=== PATIENT | female | born 1980 | race Caucasian/White ===

== ENCOUNTER 2016-06-29 10:43 | Observation (INO) | payer MEDICAID ==
[2016-06-29 10:54] VITALS: RESP 18; TEMP 98.1; O2SAT 99
[2016-06-29] MEDS ORDERED: Sodium Chloride 0.9% 1,000 ML IV ONE (11:26)
[2016-06-29 11:53] LABS: VENOUS BLOOD GAS BASE EXCESS -8.4 mmol/L (0.0-2.0); VENOUS BLOOD GAS PCO2 35 mmHg (40-60)
--- NOTE | 2016-06-29 11:56 | C.PDOC ---
History Of Present Illness 35 year old female, P:1 and currently 17 weeks , presents to the ED with complaints of lower pelvic pressure for the past few days. Patient states she felt lightheaded while at work today and notes she has had increased thirst and urination. She was recently diagnosed with gestational DM but is not on any medications for it. Patient has not had any complications with her previous . She denies previous history of DM, fever/chills, diarrhea, dysuria/ hematuria, vaginal bleeding. Time Seen by Provider: 06/29/16 10:54 Chief Complaint (Nursing): Dizziness/Lightheaded History Per: Patient History/Exam Limitations: no limitations Onset/Duration Of Symptoms: Days Current Symptoms Are (Timing): Still Present Associated Symptoms Preceding Syncopal Episode: Lightheadedness Seizure Or Post-ictal Symptoms: None Fall Associated With With Symptoms: No Severity: Mild Past Medical History Reviewed: Historical Data, Nursing Documentation, Vital Signs Vital Signs: Last Vital Signs Temp 98.1 F 06/29/16 14:15 Pulse 81 06/29/16 14:15 Resp 18 06/29/16 14:15 BP 113/76 06/29/16 14:15 Pulse Ox 99 06/29/16 14:32 - Medical History PMH: Mitral Valve Prolapse Family History: States: No Known Family Hx - Social History Hx Alcohol Use: No Hx Substance Use: No - Immunization History Hx Tetanus Toxoid Vaccination: No Hx Influenza Vaccination: No Hx Pneumococcal Vaccination: No Review Of Systems Except As Marked, All Systems Reviewed And Found Negative. Constitutional: Positive for: Other (+Increased thirst) Cardiovascular: Positive for: Light Headedness. Negative for: Chest Pain, Palpitations Gastrointestinal: Negative for: Nausea, Vomiting, Abdominal Pain, Diarrhea Genitourinary: Positive for: Frequency, Pelvic Pain (+Pelvic pressure) Physical Exam - Physical Exam Appears: Well, Non-toxic, No Acute Distress Skin: Normal Color, Warm, Dry Head: Normacephalic Eye(s): bilateral: Normal Inspection Oral Mucosa: Moist Chest: Symmetrical, No Deformity Cardiovascular: Rhythm Regular Respiratory: Normal Breath Sounds, No Accessory Muscle Use, No Rales, No Rhonchi , No Wheezing Gastrointestinal/Abdominal: Bowel Sounds, Soft, No Tenderness, No Guarding, No Rebound, Other (+Gravid) Extremity: Normal ROM, No Pedal Edema Extremity: Bilateral: Atraumatic, Normal Color And Temperature, Normal ROM Neurological/Psych: Oriented x3 ED Course And Treatment - Laboratory Results Result Diagrams: 06/29/16 11:45 06/29/16 11:45 O2 Sat by Pulse Oximetry: 99 (Room air) Pulse Ox Interpretation: Normal - CT Scan/US OBS US Other Rad Studies (CT/US): Read By Radiologist, Radiology Report Reviewed CT/US Interpretation: Accession No. : [id number]. Patient Name / ID : VERONICA ARNOLD / [id number]. Exam Date : 06/29/2016 13:21:10 ( Approved ). Study Comment : Sex / Age : F / 35Y. Creator : John Ortega MD. Dictator : John Ortega MD. Television Production Technician : Tobacco Blender : John Ortega MD. Approver2 : Report Date : 06/29/2016 14:15:17. My Comment : . PROCEDURE: OB ultrasound 06/28/2016. HISTORY: Pelvic pain. . COMPARISON: No prior. TECHNIQUE: Transabdominal sonographic evaluation of the gravid uterus performed. FINDINGS: Current study reveals a single living intrauterine gestation. The placenta is anteriorly located free of the cervical os. Cervical os measures approximately 4.93 cm and appears closed. Fetus is variable in presentation. BPD = 4.25 cm = 18 weeks 6 days. HC = 15 cm = 18 weeks 1 days. AC = 12.98 cm = 18 weeks 4 day. FL = 2.64 cm = 18 weeks 0 day. Average ultrasound age 18 weeks 3 day +/- 1w 2d. Heart rate detected at 157 BPM. Dedicated anatomy survey not performed on this study. No free fluid seen in the cul de sac. Neither adnexa visualized. IMPRESSION: Single living intrauterine gestation at approximately 18 weeks 3 day +/- 1 w 2d as above. Dedicated anatomy survey not performed on this study Progress Note: Blood work, Urinalysis, heart tones, and Accucheck ordered and reviewed. Patient given IV NS bolus. Nurse unable to auscultate heart tones, US ordered to evaluate . Reevaluation Time: 14:30 Reassessment Condition: Improved (Patient reassessed, is resting comfortably, in no current pain/distress. On exam, abdomen is soft and nontender. Patient' s Us is WNL, and blood work, UA also unremarkable. Patient is well appearing and comfortable being discharged home. She was instructed to follow up with ob/ tank builder helper within 1 week, and understands she should return to ED if symptoms worsen.) Disposition Counseled Patient/Family Regarding: Studies Performed, Diagnosis, Need For Followup - Disposition Disposition: HOME/ ROUTINE Disposition Time: 14:30 Condition: STABLE - POA Present On Arrival: None - Clinical Impression Clinical Impression: , Pelvic pain - Scribe Statement The provider has reviewed the documentation as recorded by the Scribe Miguel Gonzalez. Provider Attestation: All medical record entries made by the Scribe were at my direction and personally dictated by me. I have reviewed the chart and agree that the record accurately reflects my personal performance of the history, physical exam, medical decision making, and the department course for this patient. I have also personally directed, reviewed, and agree with the discharge instructions and disposition.
[2016-06-29] MEDS ORDERED: Sodium Chloride 0.9% 1,000 ML ONE (11:58)
[2016-06-29 12:01] LABS: BASO % 0.4 % (0.0-2.0); EOS # 0.1 K/uL (0.0-0.7); EOS % 0.5 % (0.0-4.0); HEMATOCRIT 35.8 % (34.0-47.0); LYMPH # 1.6 K/uL (1.0-4.3); MEAN CELL VOLUME 89.6 fL (81.0-99.0); MEAN CORPUSCULAR HEMOGLOBIN 29.8 pg (27.0-31.0); MEAN CORPUSCULAR HGB CONC 33.2 g/dL (33.0-37.0); MEAN PLATELET VOLUME 8.3 fL (7.2-11.7); MONO # 0.8 K/uL (0.0-0.8); MONO % 6.9 % (0.0-10.0); RED CELL DISTRIBUTION WIDTH 13.3 % (11.5-14.5); WHITE BLOOD COUNT 11.3 K/uL (4.8-10.8)
[2016-06-29 12:02] LABS: CHLORIDE 102 mmol/L (98-107); POTASSIUM 3.6 mmol/L (3.6-5.2); SODIUM 136 mmol/L (132-148)
[2016-06-29 12:03] LABS: RBC URINE 1 /hpf (0-3); URINE BACTERIA RARE (<OCC); URINE BILIRUBIN NEGATIVE (NEGATIVE); URINE BLOOD NEGATIVE (NEGATIVE); URINE COLOR Yellow (YELLOW); URINE GLUCOSE (UA) NORMAL (Normal); URINE KETONE NEGATIVE (NEGATIVE); URINE LEUKOCYTE ESTERASE NEG Leu/uL (Negative); URINE PROTEIN NEGATIVE (NEGATIVE); URINE UROBILINOGEN NORMAL mg/dL (0.2-1.0); WBC URINE < 1 /hpf (0-5)
[2016-06-29 12:04] LABS: GFR AFRICAN-AMERICAN > 60
[2016-06-29 12:05] LABS: ALB/GLOB RATIO 1.2 (1.0-2.1); ALKALINE PHOSPHATASE 58 U/L (38-126); ALT/SGPT 29 U/L (9-52); AST/SGOT 29 U/L (14-36); BILIRUBIN,TOTAL 0.3 mg/dL (0.2-1.3); BLOOD UREA NITROGEN 11 mg/dL (7-17); CARBON DIOXIDE 24 mmol/L (22-30); GLUCOSE,RANDOM 65 mg/dL (65-105); TOTAL PROTEIN 6.5 g/dL (6.3-8.3)
[2016-06-29 12:06] LABS: CALCIUM 8.9 mg/dl (8.6-10.4)
[2016-06-29 13:55] VITALS: BP 113/76; PULSE 81
--- NOTE | 2016-06-29 14:16 | US ---
PROCEDURE: OB ultrasound 06/28/2016 HISTORY: Pelvic pain. . COMPARISON: No prior TECHNIQUE: Transabdominal sonographic evaluation of the gravid uterus performed FINDINGS: Current study reveals a single living intrauterine gestation. The placenta is anteriorly located free of the cervical os. Cervical os measures approximately 4.93 cm and appears closed. Fetus is variable in presentation. BPD = 4.25 cm = 18 weeks 6 days HC = 15 cm = 18 weeks 1 days AC = 12.98 cm = 18 weeks 4 day FL = 2.64 cm = 18 weeks 0 day Average ultrasound age 18 weeks 3 day +/- 1w 2d Heart rate detected at 157 BPM. Dedicated anatomy survey not performed on this study. No free fluid seen in the cul de sac. Neither adnexa visualized IMPRESSION: Single living intrauterine gestation at approximately 18 weeks 3 day +/- 1 w 2d as above. Dedicated anatomy survey not performed on this study
== END 2016-06-29 14:31 | disposition home or self-care (01) ==
LOC: C.ER 10:43 → C.9OBSV 12:54
PROVIDERS: ADMIT Emergency Medicine; ATTEND Emergency Medicine
DX: O26.892 Other specified pregnancy related conditions, second trimester (principal); R10.2 Pelvic and perineal pain; R42 Dizziness and giddiness; Z3A.17 17 weeks gestation of pregnancy
CPT/HCPCS: 76815; 80053; 81001; 82009; 82803; 82948; 84702; 85025; 86850; 86900; 87086; 99285; G0378; J7040

== ENCOUNTER 2016-09-04 21:57 | Emergency (ER) | payer OTHER ==
[2016-09-04 22:02] VITALS: BMI 28.7
[2016-09-04] MEDS ORDERED: Lactated Ringer's 1,000 ML IV ONE (22:03)
[2016-09-04 22:36] LABS: BASO # 0.1 K/uL (0.0-0.2); BASO % 0.4 % (0.0-2.0); EOS # 0.1 K/uL (0.0-0.7); EOS % 1.1 % (0.0-4.0); LYMPH % 15.1 % (20.0-40.0); MEAN CELL VOLUME 87.8 fL (81.0-99.0); MEAN CORPUSCULAR HEMOGLOBIN 28.6 pg (27.0-31.0); MEAN CORPUSCULAR HGB CONC 32.6 g/dL (33.0-37.0); MEAN PLATELET VOLUME 8.3 fL (7.2-11.7); MONO # 1.1 K/uL (0.0-0.8); NEUT # 9.9 K/uL (1.8-7.0); NEUT % 75.4 % (50.0-75.0); RBC 3.86 Mil/uL (3.80-5.20); RED CELL DISTRIBUTION WIDTH 12.8 % (11.5-14.5); WHITE BLOOD COUNT 13.2 K/uL (4.8-10.8)
[2016-09-04 22:43] LABS: ALBUMIN 3.1 g/dL (3.5-5.0)
[2016-09-04 22:44] LABS: SQUAMOUS EPITHIAL 2 /hpf (0-5); URINE BACTERIA RARE (<OCC); URINE BILIRUBIN NEGATIVE (NEGATIVE); URINE BLOOD NEGATIVE (NEGATIVE); URINE CLARITY Clear (Clear); URINE COLOR Straw (YELLOW); URINE GLUCOSE (UA) NORMAL (Normal); URINE NITRATE NEGATIVE (NEGATIVE); URINE PROTEIN NEGATIVE (NEGATIVE); URINE UROBILINOGEN NORMAL mg/dL (0.2-1.0)
[2016-09-04 22:46] LABS: AST/SGOT 35 U/L (14-36); GFR AFRICAN-AMERICAN > 60; GFR NON-AFRICAN AMERICAN > 60
[2016-09-04 22:47] LABS: ALT/SGPT 18 U/L (9-52); BENZODIAZEPINES, UR NEGATIVE (NEGATIVE); BLOOD UREA NITROGEN 8 mg/dL (7-17); CALCIUM 8.7 mg/dl (8.6-10.4)
[2016-09-04 22:49] LABS: BARBITURATES, UR NEGATIVE (NEGATIVE)
[2016-09-04 22:51] LABS: OPIATES, UR NEGATIVE (NEGATIVE)
[2016-09-04 22:52] LABS: PHENCYCLIDINE, UR NEGATIVE (NEGATIVE)
[2016-09-04 23:06] LABS: URINE LEUKOCYTE ESTERASE NEGATIVE Leu/uL (Negative)
--- NOTE | 2016-09-04 23:32 | OBHP ---
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 Onset since approx 5 months of ; worsened over past 3 days. Denies fever, chills; no recent travel. No sick contact. (+) FM; denies LOF, VB, Ctx. care: [facility]; last visit 08/27/16 - glucosuria noted. ! hr GCT performed 09/01/16; results at F/U scheduled 09/17/16. Al es any other prenatl issues P Ob: 01/13/09, C/S at 37 weeks, female, 8lb; due to feeling tired. No trial of labor. No GDM or HT N disorders. No complications. 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 Had ECHO in [facility] end 02/2016 - also no evidence of MVP. 2) unclear thyroid disorder: patient state s "many years ago" church business administrator referred her for endocrine evaluation. Was told to have a thyroid dis order - never on medications. Has not seen endo since. 3) denies psychiatric disorders - depression, anxiety, etc. PSH: C/S NKDA Meds: PNV - QD Soc Hx: denies tobacco, illcit drug or EtOH use. x 7 years. Lives with lisa and bon ro[place] Fam Hx: Mother alive 60 y.o. - dyslipidemia, heart disease. Father 3 months ago, almost 8 0 y.o. - heart complications, h/o HTN. No known fam h/o cancer P.E.: as above. WD in NAD; sad versus flat affect, crying when answering questions about her fathe r Assessment: 36 y.o. P1, 27w 3d, prev C/S. Above symptoms suggest possible endocrinopathy, possibly related to thyroid. Would recommend in depth endocrine evaluation. VS are stable. O2 saturation wnl on room air. FHR wnl for gestational age. Clinically stable. Plan: 1) IVFs 2) CBC, comp panel, U/A, drug screen 3) observe Addendum: 2322 hours: S/P IVFs - feels better. labs reviewed: U/A and UDS negative. Hgb 11.0. Chem noted for serum gluco se 131 mg/dL. Patient concerned about the blood test results, in particular, glucose. It was explain ed to patient, mildly elevated. Assessment: P1, AMA, 27w 3d, prev C/S; R/O GDM. Patient counseled to contact clinic in the [facility] and attempt to reschedule follow up appointment for 09/10/16, and to request evaluation with c ardiologist and endocrinlogist. Patient expressed an understanding and agrees. Patient is clinically stable. Plan: 1) Discharge home 2) Note given for work: out of work until 09/08/16 Pelvic Type - PN: Not Done Extremities - PN: Normal Abdomen - PN: Normal Back - PN: Normal Breast - PN: Not Done Lungs - PN: Normal Heart - PN: Normal Thyroid - PN: Normal Neurologic - PN: Normal HEENT - PN: Normal General - PN: Normal FHR - Baseline A Provider: 145 Contraction Comments Provider: occasional Comments, ACOG Physical Exam: Skin: warm, dry. Eyebrows are filled in; symmetric Thyroid: no enlargement Abdomen: gravid. Soft. Fundal height 27 cm. Healed Pfannenstiel scar All other systems reviewed- as per HPI Gestation - Est Wks by US: 27w 3d EGA AdmitDate IP: 27.3 Vital Signs Provider: Reviewed IP Chief Complaint: Maternal discomfort NICHD Decel Fetus A IP Provider: None Dilatation, Provider: deferred Genitourinary Exam: Not Done DTRs - PN: Not Done
== END 2016-09-04 23:11 | disposition home or self-care (01) ==
LOC: C.EROB 21:57
DX: O26.892 Other specified pregnancy related conditions, second trimester (principal); R53.1 Weakness; Z3A.27 27 weeks gestation of pregnancy
CPT/HCPCS: 80053; 80324; 80345; 80346; 80349; 80353; 80358; 80361; 81001; 83992; 85025; 99283; J7120

== ENCOUNTER 2016-09-22 09:56 | Emergency (ER) | payer OTHER ==
[2016-09-22 10:06] VITALS: BMI 29.9
--- NOTE | 2016-09-22 12:18 | US ---
OB limited/ biophysical profile Indication: post fall and decrease fm Technique: Grayscale, color flow, and M-mode sonographic images of the single live intrauterine were obtained. Comparison: Limited OB ultrasound performed 06/29/16 Findings: There is a single live intrauterine gestation. The fetus is in breech position. The placenta is anterior. There is no evidence of previa. There is a normal amount of amniotic fluid. The NAE measures 12.48 cm . M-mode imaging demonstrates a heart rate to be 140.7 beats per min. Cervix length measures approximately 3.2 cm. Fetus has a composite sonographic age of 29 weeks 5 days. This calculation is based on the biparietal diameter, head circumference, abdominal circumference, and femur length. movements 2/2 breathing 2/2 tone 2/2 Amniotic fluid 2/2 Total score impression: 8/8 Impression: Biophysical profile of 8 out of 8. Single live intrauterine in breech position with a heart rate of 140.7 beats per min. Estimated gestational age 29 weeks 5 days. This study was performed for emergent evaluation, and the whole anatomic survey of the fetus was not performed. This should be performed on an outpatient elective basis as clinically warranted.
--- NOTE | 2016-09-25 12:16 | OBHP ---
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 Hit her perine um; no direct abdominal trauma. Reports no movement since. Ate breakfast at 0800 hours: "he usu ally moves a lot after I eat breakfast" - reports no movement. Denies any trauma to head or oth er body part. Denies LOF, VB, Ctx. care: [facility]; last visist approx 2 weeks ago. At that vis it, diagnosed GDM - given F.S. log sheet. Implemented dietary changes as of 09/19/16: reports fasting approx 80-90; 2 hour post prandials 101-108 since these changes. No other issues. P Ob: 01/13/09, C/S at 37 weeks, female, 8lb; due to feeling tired. No trial of labor. No GDM or HT N disorders. No complications. 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 Was having annual ECHOs; last one in [facility] 02/24/16 - no MVP. Had ECHO in [facility] end 02/2016 - also no evidence of MVP. 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 Was told to have a thyroid di sorder - never on medications. Has not seen endo since. 3) denies psychiatric disorders - depression , anxiety, etc. PSH: C/S NKDA Meds: PNV - QD Soc Hx: denies tobacco, illcit drug or EtOH use. x 7 years. Lives with and bon ro[place] Fam Hx: Mother alive 60 y.o. - dyslipidemia, heart disease. Father 4 months ago, almost 8 0 y.o. - heart complications, h/o HTN. No known fam h/o cancer P.E.: as above. Mildy obese, in NAD. Awake, alert, oriented to time, person and place. Pleasant an d cooperative Assessment: 36 yo P1, 30 weeks; S/P fall; no abdominal trauma - reports no movement. Categor y 1 tracing/NST reactive. Newly diagnosed GDM - apparent good control to date. D/W patient will obtai n F.S. (ate breakfst at 0800 hours); and BPP. Patient expressed an understanding and agrees. Clinical ly stable. Plan: 1) F.S. (2hr post prandial) at 1000 hours 2) OB ultrasound/BPP 3) Observe Addendum: 1305 hours - F.S. at 1000 hours 92 mg/dL - BPS: 10/14 - Limited Ob ultraosund: AGA 29w 5d, breech presentation, NAE 12.4 cm; anterior placenta. Patient ate lunch; reported feeling more normal movement Plan: 1) Note given: off from work until visit, Thu09/24/16 2) reviewed S/S PTL 3) Continue F.S. and dietary changes 4) keep all scheduled appointments 5) discharge home Pelvic Type - PN: Adequate Extremities - PN: Normal Abdomen - PN: Normal Back - PN: Normal Breast - PN: Not Done Lungs - PN: Normal Heart - PN: Normal Thyroid - PN: Not Done Neurologic - PN: Normal HEENT - PN: Normal General - PN: Normal FHR - Baseline A Provider: 145 Contraction Comments Provider: none Comments, ACOG Physical Exam: Skin: warm, dry Abdomen: gravid. Soft. non tender in all quadrants. No bruises All other systems reviewed and are negative Gestation - Est Wks by US: 30.0 EGA AdmitDate IP: 30.0 Vital Signs Provider: Reviewed IP Chief Complaint: Other NICHD Variability Prov Fetus A: Moderate 6-25bpm NICHD Accel Fetus A IP Provider: [id number] FHR Category Provider Fetus A: Category I NICHD Decel Fetus A IP Provider: None Dilatation, Provider: deferred Genitourinary Exam: Normal DTRs - PN: Not Done
== END 2016-09-22 13:01 | disposition home or self-care (01) ==
LOC: C.EROB 09:56
DX: O36.8130 Decreased fetal movements, third trimester, not applicable or unspecified (principal); O24.419 Gestational diabetes mellitus in pregnancy, unspecified control; Z3A.30 30 weeks gestation of pregnancy

== ENCOUNTER 2016-10-21 10:38 | Emergency (ER) | payer OTHER ==
[2016-10-21 10:38] VITALS: BMI 29.9
[2016-10-21 11:12] VITALS: PULSE 90
--- NOTE | 2016-10-21 13:18 | C.PDOC ---
History Of Present Illness 36 y/o female and currently 34 weeks presents to ED with complaints of chest discomfort earlier today. Patient states she was at work and 45 minutes after eating started feeling discomfort on chest. Patient reports she was told by OBGYN Dr. 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 Patient admits to checking sugar regularly as instructed and denies fever, cough, vomiting, nausea or any other complaints at this time. Patient states her symptoms today lasted about 2 hours and she does not have any symptoms currently. She thinks it is likely due to glucose being high. She has been checking her glucose and it has been about 80s to max of 130 and OBGYN has not started her on insulin. Time Seen by Provider: 10/21/16 12:52 Chief Complaint (Nursing): Chest Pain History Per: Patient History/Exam Limitations: no limitations Onset/Duration Of Symptoms: Days Current Symptoms Are (Timing): Still Present Past Medical History Reviewed: Historical Data, Nursing Documentation, Vital Signs Vital Signs: Last Vital Signs Temp 98.2 F 10/21/16 10:46 Pulse 90 10/21/16 11:06 Resp 20 10/21/16 10:46 BP 118/85 10/21/16 10:46 Pulse Ox 95 10/21/16 13:41 - Medical History PMH: Mitral Valve Prolapse Family History: States: Unknown Family Hx - Social History Hx Alcohol Use: No Hx Substance Use: No - Immunization History Hx Tetanus Toxoid Vaccination: No Hx Influenza Vaccination: No Hx Pneumococcal Vaccination: No Review Of Systems Except As Marked, All Systems Reviewed And Found Negative. Constitutional: Negative for: Fever Cardiovascular: Positive for: Chest Pain Gastrointestinal: Negative for: Nausea, Vomiting Physical Exam - Physical Exam Additional Physical Exam Comments: Constitutional: No acute distress. Head: Normocephalic. Atraumatic. Eyes: PERRL. ENT: Moist mucous membranes. Neck: Supple. Cardiovascular: Regular rate. Radial pulse 2+ bilaterally. Chest: No tenderness. Respiratory: Clear to auscultation bilaterally. GI: Soft. Nontender. Nondistended. Gravid Uterus Back: No CVA tenderness. Musculoskeletal: No tenderness or swelling of extremities. Skin: No rash. Neurologic: Alert, no focal deficit. ED Course And Treatment ECG: Interpreted By Me, Viewed By Me ECG Rhythm: Sinus Rhythm ECG Interpretation: Normal Interpretation Of ECG: No ST/T changes, Normal access Rate From EC (bpm) O2 Sat by Pulse Oximetry: 95 (ra) Medical Decision Making Medical Decision Making: Plan: * UA UA negative for protein, not positive for UTI, culture sent. Patient with follow up with OBGYN tomorrow. Will discharge home, return for worsening pain, dyspnea, vomiting. Disposition - Disposition Disposition: HOME/ ROUTINE Disposition Time: 13:32 Condition: STABLE Instructions: Gestational Diabetes (ED) Forms: [employer] ([place]) - Clinical Impression Clinical Impression: Chest discomfort - PA / PATIENT SERVICES TECHNICIAN / Resident Statement MD/DO has examined the patient and agrees with the treatment plan. - Scribe Statement The provider has reviewed the documentation as recorded by the Adrienibleighton Candelario All medical record entries made by the Adrienibleighton were at my direction and personally dictated by me. I have reviewed the chart and agree that the record accurately reflects my personal performance of the history, physical exam, medical decision making, and the department course for this patient. I have also personally directed, reviewed, and agree with the discharge instructions and disposition.
[2016-10-21 13:30] LABS: RBC URINE 1 /hpf (0-3); URINE BACTERIA RARE (<OCC); URINE BILIRUBIN NEGATIVE (NEGATIVE); URINE BLOOD NEGATIVE (NEGATIVE); URINE COLOR Yellow (YELLOW); URINE GLUCOSE (UA) 2+ mg/dL (Normal); URINE KETONE NEGATIVE (NEGATIVE); URINE LEUKOCYTE ESTERASE 2+ Leu/uL (Negative); URINE PROTEIN NEGATIVE (NEGATIVE); URINE UROBILINOGEN NORMAL mg/dL (0.2-1.0); WBC URINE 2 /hpf (0-5)
[2016-10-21 13:56] VITALS: BP 99/59; RESP 18; TEMP 98.5; O2SAT 99
--- NOTE | 2016-10-25 18:24 | CARD ---
APPROVED REPORT EKG Measurement Heart [id number] <Conclusion> Normal sinus rhythm Normal ECG
== END 2016-10-21 13:55 | disposition home or self-care (01) ==
LOC: C.ER 10:38
DX: R07.89 Other chest pain (principal)

== ENCOUNTER 2016-11-27 08:24 | Inpatient (IN) | payer OTHER ==
[2016-11-27] MEDS ORDERED: cefOXitin IV 2 gm in Dextrose 2 GM/50 ML BAG IVPB ONE (08:50)
[2016-11-27] MEDS ORDERED: Lactated Ringer's 1,000 ML IV SCH (09:00)
[2016-11-27] MEDS ORDERED: Sodium Citrate/Citric Acid 15 ml Sol PO ONE (09:18)
[2016-11-27 09:26] LABS: BASO % 0.5 % (0.0-2.0); EOS % 0.4 % (0.0-4.0); HEMATOCRIT 33.9 % (34.0-47.0); LYMPH # 1.4 K/uL (1.0-4.3); LYMPH % 15.2 % (20.0-40.0); MEAN CORPUSCULAR HEMOGLOBIN 24.4 pg (27.0-31.0); MEAN CORPUSCULAR HGB CONC 32.3 g/dL (33.0-37.0); MEAN PLATELET VOLUME 8.5 fL (7.2-11.7); MONO # 0.7 K/uL (0.0-0.8); MONO % 7.3 % (0.0-10.0); NRBC % 0.2 % (0.0-2.0); RED CELL DISTRIBUTION WIDTH 16.5 % (11.5-14.5); WHITE BLOOD COUNT 9.5 K/uL (4.8-10.8)
[2016-11-27 09:30] LABS: CHLORIDE 107 mmol/L (98-107); SODIUM 133 mmol/L (132-148)
[2016-11-27 09:31] LABS: MEAN CELL VOLUME 75.5 fL (81.0-99.0)
[2016-11-27 09:32] LABS: ALB/GLOB RATIO 1.1 (1.0-2.1); ALKALINE PHOSPHATASE 176 U/L (38-126); ALT/SGPT 39 U/L (9-52); AST/SGOT 30 U/L (14-36); BILIRUBIN,TOTAL 0.9 mg/dL (0.2-1.3); BLOOD UREA NITROGEN 10 mg/dL (7-17); CARBON DIOXIDE 16 mmol/L (22-30); GFR AFRICAN-AMERICAN > 60; TOTAL PROTEIN 6.2 g/dL (6.3-8.3)
[2016-11-27 09:33] LABS: GLUCOSE,RANDOM 75 mg/dL (65-105)
[2016-11-27 09:34] LABS: CALCIUM 8.9 mg/dl (8.6-10.4)
[2016-11-27] MEDS ORDERED: Penicillin G Potassium 5 MU in Dextrose 5% In Water 50 ML IV ONE (09:44)
[2016-11-27] MEDS ORDERED: Penicillin G 5 Million Unit Vial IVPB ONE (09:46)
[2016-11-27] MEDS ORDERED: OXYTOCIN IV ONE (10:27)
[2016-11-27] MEDS ORDERED: CEFOXITIN IVPB ONE (10:27)
[2016-11-27] MEDS ORDERED: DEXTROSE IVPB ONE (10:27)
[2016-11-27] MEDS ORDERED: Sodium Citrate/Citric Acid 15 ml Sol ONE (10:27)
[2016-11-27] MEDS ORDERED: LR IV ONE (10:27)
--- NOTE | 2016-11-27 11:30 | OBHP ---
Datetime: 11/27/2016 09:01 IP Adm Impression: Term, intrauterine IP Admit Plan: Admit to unit; Initiate Section protocol Admit Comment, IP Provider: Chief complaint-leaking of fluid HPI Patient is a 36 yo at 38weeks 3 days by LMP (03/03/17) presents to L and D for suspect ed rupture of membranes. Patient states that she felt a gush of fluid at 7:30 this morning. Fluid was clear. Offers no other complaints at this time. Endorses +FM, denies CTX, VB. Issues: AMA - low risk informaseq GDMA1 - Early 1 hr GTT 160, 1 hr GTT 211 OB Hx: 1. 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 Stable, Afebrile 2. Admit for repeat C/S, desires permanent sterilization (BTL consent signed) 3. Admission labs - CBC, CMP, T/S, UA, RPR 4. LR at 125cc/hr 5. Hx of MVP - Last echo 12/2015 normal, EKG ordered 6. CEFM and TOCO 7. Pre op - Mefoxitin 2g, bicitra, pepcid, insert magaña, abdominal prep 8. Diet - NPO 9. GBS positive, ruptured - Pen G 5 MU to be given 10. Patient ready for OR, awaiting surgical scrub technologist 11. Plan d/w attending Elizabeth Buenrostro DO PGY-1 OB attending Patient examined with resident.Agree with resident exam, assessment and plan 36 y/o female with prom.previous csection.GDMA1 -admit -see orders Pelvic Type - PN: Adequate Extremities - PN: Normal Abdomen - PN: Normal Back - PN: Normal Lungs - PN: Normal Heart - PN: Normal Neurologic - PN: Normal General - PN: Normal Presentation-Admit: Vertex FHR - Baseline A Provider: 140 Contraction Comments Provider: irregular Comments, ACOG Physical Exam: VS: BP 113/84 HR 91 Gen: AAOx3 CV: RRR Lungs: CTA B/L Abd: Soft, gravid, no fundal tenderness Ext: No clubbing, cyanosis, edema SSE: +Pooling, +nitrazine EFM: 140, mod variability, +accels, - decels TOCO: q 4- 7 min PNL: O+ Rubella immune HepBSag NR HIV NR RPR NR GC/CT negative HgA1C 6.1 Early 1 hr 160; 1 hr GTT 211 3hr GTT 76/140/112/102 Quant gold negative Last pap normal Last US 11/12: single IUP, anterior placenta, cephalic presentation, NAE WNL Gestation - Est Wks by US: 38.3 Pool Provider: Positive Nitrazine Provider: Positive Ferning Provider: Positive EGA AdmitDate IP: 38.3 Vital Signs Provider: Reviewed IP Chief Complaint: Suspected ruptured membranes NICHD Variability Prov Fetus A: Moderate 6-25bpm NICHD Accel Fetus A IP Provider: 15X15 FHR Category Provider Fetus A: Category I Dilatation, Provider: 2 Effacement, Provider: 50 Station, Provider: -2 DTRs - PN: Normal
--- NOTE | 2016-11-27 11:33 | OBADHP ---
Datetime: 11/27/2016 09:01 Admit Comment, IP Provider: Chief complaint-leaking of fluid HPI Patient is a 36 yo at 38weeks 3 days by LMP (03/03/17) presents to L and D for suspect ed rupture of membranes. Patient states that she felt a gush of fluid at 7:30 this morning. Fluid was clear. Offers no other complaints at this time. Endorses +FM, denies CTX, VB. Issues: AMA - low risk informaseq GDMA1 - Early 1 hr GTT 160, 1 hr GTT 211 OB Hx: 1. 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 Stable, Afebrile 2. Admit for repeat C/S, desires permanent sterilization (BTL consent signed) 3. Admission labs - CBC, CMP, T/S, UA, RPR 4. LR at 125cc/hr 5. Hx of MVP - Last echo 12/2015 normal, EKG ordered 6. CEFM and TOCO 7. Pre op - Mefoxitin 2g, bicitra, pepcid, insert magaña, abdominal prep 8. Diet - NPO 9. GBS positive, ruptured - Pen G 5 MU to be given 10. Patient ready for OR, awaiting rn surgical 11. Plan d/w attending Elizabeth Buenrostro DO PGY-1 OB attending Patient examined with resident.Agree with resident exam, assessment and plan 36 y/o female with prom.previous csection.GDMA1 -admit -see orders Pelvic Type - PN: Adequate Extremities - PN: Normal Abdomen - PN: Normal Back - PN: Normal Lungs - PN: Normal Heart - PN: Normal Neurologic - PN: Normal General - PN: Normal Presentation-Admit: Vertex FHR - Baseline A Provider: 140 Contraction Comments Provider: irregular Comments, ACOG Physical Exam: VS: BP 113/84 HR 91 Gen: AAOx3 CV: RRR Lungs: CTA B/L Abd: Soft, gravid, no fundal tenderness Ext: No clubbing, cyanosis, edema SSE: +Pooling, +nitrazine EFM: 140, mod variability, +accels, - decels TOCO: q 4- 7 min PNL: O+ Rubella immune HepBSag NR HIV NR RPR NR GC/CT negative HgA1C 6.1 Early 1 hr 160; 1 hr GTT 211 3hr GTT 76/140/112/102 Quant gold negative Last pap normal Last US 11/12: single IUP, anterior placenta, cephalic presentation, NAE WNL Gestation - Est Wks by US: 38.3 Pool Provider: Positive Nitrazine Provider: Positive Ferning Provider: Positive Vital Signs Provider: Reviewed IP Chief Complaint: Suspected ruptured membranes NICHD Variability Prov Fetus A: Moderate 6-25bpm NICHD Accel Fetus A IP Provider: [id number] FHR Category Provider Fetus A: Category I Dilatation, Provider: 2 Effacement, Provider: 50 Station, Provider: -2 DTRs - PN: Normal EGA AdmitDate IP: 38.3 IP Adm Impression: Term, intrauterine IP Admit Plan: Admit to unit; Initiate Section protocol Datetime: 09/22/2016 11:16 IP Chief Complaint Other: Slip in bathroom; no abdominal trauma Breast - PN: Not Done Thyroid - PN: Not Done HEENT - PN: Normal NICHD Decel Fetus A IP Provider: None Genitourinary Exam: Normal
[2016-11-27] MEDS ORDERED: Morphine 1 mg/ml preservative-free Inj(Duramorph) ONE (11:34)
[2016-11-27] MEDS ORDERED: Oxycodone/Acetaminophen 5/325 mg Tab PO PRN ×2 (12:25→22:04)
--- NOTE | 2016-11-27 13:14 | OBDS ---
DELIVERY PERSONNEL Delivery Doctor: Vesna Pichardo MD Scrub Nurse: Tamara Lopez OBT Flavor Tank Tender: Luis Ga RN Anesthesiologist: DR LOPES Resident: DR HUDSON MATERNAL INFORMATION Delivery Anesthesia: Spinal Estimated Blood Loss (ml): 700 Provider Comments: repeat csection and btl done LABOR SUMMARY EDC: 12/08/2016 00:00 LABOR INFORMATION Group B Beta Strep: Positive MEMBRANES Membranes Rupture Method: Spontaneous Rupture of Membranes: 11/27/2016 07:30 Length of Rupture (hrs): 4.72 Amniotic Fluid Color: Clear Amniotic Fluid Amount: Moderate Amniotic Fluid Odor: Normal STAGES OF LABOR Stage 3 hrs: 0 Stage 3 min: 1 CSECTION DELIVERY Primary Indication: Repeat Elective Secondary Indication: premature rupture of membranes CSection Urgency: Non Elective CSection Incidence: Repeat Labor: Labor Elective: Nonelective CSection Incision: Lower Uterine Transverse Sterilization Procedure: Pita Uterine Closure: Double-layer closure BABY A INFORMATION Infant Delivery Date/Time: 11/27/2016 12:13 Method of Delivery: Born in Route : No : N/A Forceps: N/A Vacuum Extraction: N/A Shoulder Dystocia : No SHOULDER DYSTOCIA BABY A Delivery Date/Time: 11/27/2016 12:13 PRESENTATION/POSITION BABY A Presentation: Cephalic Cephalic Presentation: Vertex Breech Presentation: N/A PLACENTA INFORMATION BABY A Placenta Delivery Time : 11/27/2016 12:14 (Annotations: Data stored by [facility] on behalf of user) Placenta Method of Delivery: Manual Removal Placenta Status: Delivered SCORES BABY A Heart Rate 1 min: >100 bpm Resp Effort 1 min: Good Cry Reflex Irritability 1 min: Cough or Sneeze or Pulls Away Muscle Tone 1 min: Active Motion Color 1 min: Body [place], Extremities Blue SCORE 1 MIN: 9 Heart Rate 5 min: >100 bpm Resp Effort 5 min: Good Cry Reflex Irritability 5 min: Cough or Sneeze or Pulls Away Muscle Tone 5 min: Active Motion Color 5 min: Body [place], Extremities Blue SCORE 5 MIN: 9 INFORMATION BABY A Gestational Age at Delivery: 38.3 Gestational Status: Term Outcome : Liveborn Infant Condition : Stable Sex: Male IDENTIFICATION/MEDS BABY A Sensor Applied: Yes Sensor Location : Cord Clamp WEIGHT/LENGTH BABY A Infant Birthweight (gms): 3740 Infant Weight (lb): 8 Infant Weight (oz): 4 Infant Length Inches: 20.00 Length cms: 50.8 CORD INFORMATION BABY A No. Cord Vessels: 3 Nuchal Cord : N/A Cord Blood Taken: Yes Suction: Mouth; Nose ASSESSMENT BABY A Infant Complications: None Physical Findings at Delivery: Within Normal Limits Infant Respirations: Appears Normal Clearing Inspector/ALS Called : Yes Care By: DR PACHECO Transferred To: Remains with Mother
[2016-11-27] MEDS ORDERED: cefOXitin IV 1 gm in Dextrose 1 GM/50 ML BAG IVPB SCH (13:15)
[2016-11-27] MEDS: Simethicone 80 mg Chewtab PO SCH ×2 (17:53→21:55)
[2016-11-27] MEDS: cefOXitin IV 1 gm in Dextrose 1 GM/50 ML BAG IVPB SCH (20:21)
[2016-11-27] MEDS: Oxycodone/Acetaminophen 5/325 mg Tab PO PRN (22:13)
[2016-11-28] MEDS: cefOXitin IV 1 gm in Dextrose 1 GM/50 ML BAG IVPB SCH (02:57)
[2016-11-28] MEDS: Oxycodone/Acetaminophen 5/325 mg Tab PO PRN ×4 (04:22→20:00)
[2016-11-28 08:19] LABS: BASO # 0.1 K/uL (0.0-0.2); BASO % 0.4 % (0.0-2.0); EOS # 0.1 K/uL (0.0-0.7); EOS % 0.4 % (0.0-4.0); HEMATOCRIT 29.6 % (34.0-47.0); LYMPH # 1.3 K/uL (1.0-4.3); LYMPH % 9.1 % (20.0-40.0); MEAN CELL VOLUME 75.7 fL (81.0-99.0); MEAN CORPUSCULAR HEMOGLOBIN 24.6 pg (27.0-31.0); MEAN CORPUSCULAR HGB CONC 32.5 g/dL (33.0-37.0); MEAN PLATELET VOLUME 8.3 fL (7.2-11.7); MONO # 1.2 K/uL (0.0-0.8); MONO % 8.9 % (0.0-10.0); NRBC % 0.2 % (0.0-2.0); PLATELET COUNT 268 K/uL (130-400); RED CELL DISTRIBUTION WIDTH 16.3 % (11.5-14.5); WHITE BLOOD COUNT 14.1 K/uL (4.8-10.8)
[2016-11-28 09:11] LABS: EOSINOPHIL 1 % (0-4); NEUTROPHIL 83 % (50-75); TOTAL CELLS COUNTED 100
[2016-11-28] MEDS: Simethicone 80 mg Chewtab PO SCH ×4 (09:24→22:44)
[2016-11-28] MEDS ORDERED: Oxycodone/Acetaminophen 5/325 mg Tab ONE (09:33)
--- NOTE | 2016-11-28 09:45 | OP ---
PROCEDURE DATE: 11/27/2016 PREOPERATIVE DIAGNOSES: 1. Previous section. 2. Multiparity, requesting sterilization. 3. Premature rupture of membranes. PROCEDURES PERFORMED: Repeat lower transverse section, bilateral tubal ligation. SURGEON: Dr. Leonardo Pichardo. ASSISTANTS: Dr. Charli Flores and Dr. Moreland, PGY-1. TYPE OF ANESTHESIA: Spinal. ANESTHESIA ADMINISTERED BY: Dr. Leach. FINDINGS: Viable male infant in vertex presentation, Apgars of 9 at one minute and 9 at five minutes. Normal uterus, tubes, and ovaries bilaterally. ESTIMATED BLOOD LOSS: 700 mL. COMPLICATIONS: None. SPECIMEN: Placenta and portion of right fallopian tube and left fallopian tube. Please note that the procedure required a surgical garment fitter to assist with the entering to the abdominal cavity, to assist with the dissection of the tissues and assist with the delivery of the and also to assist with the closure of the abdominal wall. The surgical garment fitter was present and scrubbed for the entire duration of the procedure. DESCRIPTION OF PROCEDURE: After informed consent was obtained, the patient was taken to the operating room where spinal anesthesia was administered by the anesthesia team. She was thereafter placed in dorsal supine position with a leftward tilt. House catheter was placed transurethrally for bladder drainage using sterile precaution. She was then prepped and draped in the usual sterile manner. After it was confirmed that she had adequate anesthesia, incision was made in the previous Pfannenstiel incision scar and this was carried down to the underlying layer of the fascia with the help of the Bovie. The fascia was incised in the midline and the incision was extended laterally with the help of Bovie as well. The superior aspect of the fascial incision was then grasped with Rodrigo clamp to elevate it and the underlying rectus muscle was dissected off. Attention was then turned to the inferior aspect of the fascial incision which in a similar fashion was grasped with Rodrigo clamp to elevate it and the underlying rectus muscle was dissected off. The rectus muscle was in the midline. The peritoneum was entered sharply using Metzenbaum scissors and by tenting up with Millicent clamps. The peritoneal incision was extended superiorly and inferiorly with good visualization of the bladder. The bladder blade was then inserted and the vesicouterine peritoneum identified. A transverse incision was made by tenting up the vesicouterine peritoneum with pickups and entering sharply with Metzenbaum scissors, this was extended laterally and the bladder flap was created sharply. The bladder blade was then reinserted and the lower uterine segment was identified. A transverse incision was made in the lower uterine segment with the help of a fresh scalpel, this incision was bluntly stretched. The membranes were ruptured and clear amniotic fluid was noted. The infant's head was then delivered atraumatically, the body and the shoulders were also delivered without difficulty. The nose and the mouth were suctioned and the cord was then clamped and cut. The was handed over to the waiting manager of change. The cord blood was collected and placenta was then manually removed. The uterus was exteriorized and was cleared of all clots and debris. The uterine incision was repaired with 0 Polysorb in a running locked fashion. A second layer using 0 Monocryl was used to imbricate the first layer and also to obtain hemostasis. Adequate hemostasis was noted at the uterine incision repair site. The right fallopian tube was thereafter grasped with Giovanni and a loop was formed using 2-0 plain gut. The loop was excised and thereafter tubal ligation was performed using the [place] technique. Similar procedure was repeated on the left side. Hemostasis was ensured on both sides of the tubal ligation. The gutters and the cul-de-sac were irrigated and suctioned. The uterus was then returned to the patient's abdomen, and the uterine incision repair site at the site of tubal ligation on both sides was inspected and good hemostasis was noted. The peritoneum was closed with 2-0 Polysorb in a running fashion. The muscle layer was reapproximated using 2-0 Polysorb in a running fashion. The fascia was closed with 0 Vicryl in a running fashion. The subcutaneous tissue was reapproximated with 2-0 Polysorb in a running fashion. The skin was thereafter closed with alvin. The sponge, lap, needle, and instrument count was correct x3 as reported to me at the end of the procedure. The patient tolerated the procedure well. The House catheter was left in situ for postop bladder drainage. Leonardo Pichardo MD
--- NOTE | 2016-11-28 19:58 | OBPPN ---
Datetime: 11/28/2016 08:04 PP Pain Prov: Within normal limits PP Nausea Prov: Denies PP Flatus Prov: No PP BM Prov: No PP Abdomen/Uterus Prov: Normal PP Lochia Prov: Normal PP Extremities Prov: Normal PP C/S Incision Prov: Normal PP Impression Prov: Normal progression PP Plan Prov: Continue present management PP Progress Note Prov: Patient seen and examined at bedside. Per nursing no acute events overnight. Patient is doing well, pain is controlled. Lochia is mild. Has not urinated yet. Denies passing flatu s and BM. Denies headaches, dizziness, cp, palpitations, sob. Breast feeding. VS: 112/67 83 98.8 Gen: AAOx3 CV: RRR Lungs: CTA B/L Abd: Soft, appropriately tender, dressing c/d/i, fundus firm at umbilicus Ext: No clubbing, cyanosis, edema; no calf tenderness Labs: 9.5>10.9/33.9<314 F/U am CBC O positive Rubella immune A/P: 36 yo at 38w3d s/p RLTCD with BTL POD#1 1. Stable, afebrile 2. Pain control - percocet and motrin prn 3. F/U am CBC 4. F/U voiding trial 5. Advance diet as tolerated 6. Encourage ambulation and hydration; Encourage ISS use 7. Encourage breast feeding 8. Continue routine care 9. Male - no circ 10. Plan d/w attending Elizabeth Buenrostro DO PGY-1 attending note. agrees with abov Vital Signs Provider PP: Reviewed; Within Normal Limits
[2016-11-29] MEDS: Simethicone 80 mg Chewtab PO SCH ×5 (09:27→22:24)
[2016-11-29] MEDS: Oxycodone/Acetaminophen 5/325 mg Tab PO PRN ×3 (09:30→18:09)
[2016-11-29] MEDS ORDERED: Magnesium Hydroxide Susp 30 ml UD PO ONE (20:03)
[2016-11-29 23:44] VITALS: O2SAT 100
[2016-11-30] MEDS: Oxycodone/Acetaminophen 5/325 mg Tab PO PRN (08:24)
[2016-11-30 08:41] VITALS: BP 104/70; PULSE 89; RESP 18; TEMP 97.2
[2016-11-30] MEDS: Simethicone 80 mg Chewtab PO SCH (08:59)
--- NOTE | 2016-12-01 16:44 | CARD ---
APPROVED REPORT EKG Measurement Heart [id number] <Conclusion> Normal sinus rhythm Normal ECG
== END 2016-11-30 10:30 | disposition home or self-care (01) | DRG 651 ==
LOC: C.EROB 08:24 → C.4D 08:50 → C.4M 16:18
PROVIDERS: ADMIT Student in an Organized Health Care Education/Training Program; ATTEND Student in an Organized Health Care Education/Training Program
PROC: 10D00Z1 Extraction of Products of Conception, Low, Open Approach (ICD-10-PCS; principal; 2016-11-27)
PROC: 0UB70ZZ Excision of Bilateral Fallopian Tubes, Open Approach (ICD-10-PCS; 2016-11-27)
DX: O24.420 Gestational diabetes mellitus in childbirth, diet controlled (principal); O99.824 Streptococcus B carrier state complicating childbirth; O34.211 Maternal care for low transverse scar from previous cesarean delivery; O42.92 Full-term premature rupture of membranes, unspecified as to length of time between rupture and onset of labor; Z37.0 Single live birth; Z30.2 Encounter for sterilization; Z3A.38 38 weeks gestation of pregnancy

== ENCOUNTER 2017-02-11 11:28 | Emergency (ER) | payer OTHER ==
[2017-02-11 11:28] VITALS: BMI 29.9
--- NOTE | 2017-02-11 12:05 | C.PDOC ---
History Of Present Illness 36 y/o female without significant PMHx presents to ED for evaluation of head discomfort intermittently for 1 week. Patient describes discomfort as "tingling sensation" diffusely through different parts of head with occasionally radiating to left side of face. Patient reports she had cold like symptoms 2 weeks ago prior to developing current symptoms. Otherwise, Patient denies high fever, chills, visual changes, focal deficits, neck pain, CP, SOB, dyspnea, palpitation, abd. pain, N/V/D, back pain, UTI sx, denies weakness, sensory or vascular deficits to B/L UEs and LEs. Ambulate to ED for evaluation, not in any apparent distress. Time Seen by Provider: 02/11/17 11:47 Chief Complaint (Nursing): Headache History Per: Patient History/Exam Limitations: no limitations Onset/Duration Of Symptoms: Days Current Symptoms Are (Timing): Still Present Past Medical History Reviewed: Historical Data, Nursing Documentation, Vital Signs Vital Signs: Last Vital Signs Temp 97.7 F 02/11/17 13:03 Pulse 75 02/11/17 13:03 Resp 16 02/11/17 13:03 BP 123/75 02/11/17 13:03 Pulse Ox 100 02/11/17 13:03 - Medical History PMH: Diabetes, Mitral Valve Prolapse Surgical History: No Surg Hx - [facility] Procedures EXCISION OF BILATERAL FALLOPIAN TUBES, OPEN APPROACH (11/27/16) EXTRACTION OF POC, LOW CERVICAL, OPEN APPROACH (11/27/16) Family History: States: No Known Family Hx - Social History Hx Alcohol Use: No Hx Substance Use: No - Immunization History Hx Tetanus Toxoid Vaccination: No Hx Influenza Vaccination: No Hx Pneumococcal Vaccination: No Review Of Systems Constitutional: Negative for: Fever, Chills Gastrointestinal: Negative for: Nausea, Vomiting Skin: Negative for: Rash Neurological: Positive for: Headache. Negative for: Weakness, Numbness, Dizziness Physical Exam - Physical Exam Appears: Well, Non-toxic, No Acute Distress Skin: Normal Color, Warm, Dry, No Rash Head: Atraumatic, Normacephalic Eye(s): bilateral: PERRL, EOMI Ear(s): Bilateral: Normal Nose: No Flaring, No Discharge Oral Mucosa: Moist, Other (mild tenderness over Left maxillary and frontal sinuses. No edmea or erythema.) Tongue: Normal Appearing Lips: Normal Appearing Throat: No Erythema, No Exudate, No Drooling Neck: Trachea Midline, Supple Cardiovascular: Rhythm Regular, No Murmur, No JVD, Other ((-) carotid bruits) Respiratory: No Decreased Breath Sounds, No Accessory Muscle Use, No Rales, No Rhonchi, No Wheezing Gastrointestinal/Abdominal: Soft, No Tenderness, No Guarding, No Rebound Back: No CVA Tenderness Extremity: Normal ROM, No Pedal Edema, Capillary Refill (<2 seconds) Neurological/Psych: Oriented x3, Normal Speech, Normal Cranial Nerves, Normal Motor, Normal Sensation, Normal Reflexes Gait: Steady ED Course And Treatment - Laboratory Results Urine POC: Negative O2 Sat by Pulse Oximetry: 98 (RA) Pulse Ox Interpretation: Normal Progress Note: On re-evaluation, pt is afebrile, hemodynamicaly stable. Non- toxic. Tolerate PO well in ED. PulseOx 98% RA. ENT: mild tenderness over Left maxillary and frontal sinuses. No edema, no erythema. Uvula midline, no edema. neck: Supple, (-) meningeal sign. Lungs: CTA B/L, BS equal B/L. CVS: (+)S1S2, reg. Abd: benign. Neurologicaly intact. UA results review (-). Pt has clinical findings c/w head discomfort, sinuses tenderness r/o sinusitis vs neuralgia. Neurologicaly intact. CT head offered to patient, risk vs benefits discussed, pt refused at this time, agrees at this low risk case. Pt advised. re.f to f/u with PMD, Neuorlogicaly in 2-3 days for re-eavl. return to ED if any worsening ro new changes Disposition Counseled Patient/Family Regarding: Studies Performed, Diagnosis, Need For Followup, Rx Given - Disposition Referrals: Aide Cagle ACNP-BC [Advanced Practice Nurse] - [facility] [Outside] [place] Ken MD [Staff Provider] - Disposition: HOME/ ROUTINE Disposition Time: 12:33 Condition: STABLE Additional Instructions: TAKE MEDICATION PRESCRIBED FOLLOW UP WITH PMD, NEUROLOGIST IN 23 DAYS FOR RE-EVALUATION. RETURN TO ed IF ANY WORSENING OR NEW CHANGES. 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 VICE PRESIDENT JAGUAR BRAND (EX ) / Resident Statement MD/DO has reviewed & agrees with the documentation as recorded. - Scribe Statement The provider has reviewed the documentation as recorded by the Adrienibleighton Candelario All medical record entries made by the Adrienibleighton were at my direction and personally dictated by me. I have reviewed the chart and agree that the record accurately reflects my personal performance of the history, physical exam, medical decision making, and the department course for this patient. I have also personally directed, reviewed, and agree with the discharge instructions and disposition.
[2017-02-11 12:30] LABS: URINE BILIRUBIN NEGATIVE (NEGATIVE); URINE BLOOD NEGATIVE (NEGATIVE); URINE COLOR Straw (YELLOW); URINE GLUCOSE (UA) NORMAL (Normal); URINE KETONE NEGATIVE (NEGATIVE); URINE LEUKOCYTE ESTERASE NEG Leu/uL (Negative); URINE PROTEIN NEGATIVE (NEGATIVE); URINE UROBILINOGEN NORMAL mg/dL (0.2-1.0)
[2017-02-11] MEDS ORDERED: Amoxicillin-Clav 875-125 mg Tab PO STA (12:32)
[2017-02-11] MEDS ORDERED: Amoxicillin-Clav 875-125 mg Tab PO ONE (12:37)
[2017-02-11 12:48] LABS: WBC URINE 1 /hpf (0-5)
[2017-02-11 13:04] VITALS: BP 123/75; PULSE 75; RESP 16; TEMP 97.7
[2017-02-11 16:12] VITALS: O2SAT 98
== END 2017-02-11 13:11 | disposition home or self-care (01) ==
LOC: C.ER 11:28
DX: J32.9 Chronic sinusitis, unspecified (principal); M79.2 Neuralgia and neuritis, unspecified

== ENCOUNTER 2017-10-29 11:54 | Emergency (ER) | payer OTHER ==
[2017-10-29 11:54] VITALS: BMI 29.9
[2017-10-29 12:11] VITALS: TEMP 98
--- NOTE | 2017-10-29 13:28 | C.PDOC ---
History Of Present Illness 37 y/o female presents to the ER complaining of intermittent pelvic pain which has been present for the past few "months." Patient describes the pain as cramping. Patient reports that the pain is not associated with her menses and bowel movement. She notes that she had her last pap smear with her BOARD CERTIFIED FAMILY PHYSICIAN in February 2017. Notes clear mucous vaginal discharge, states she always had it during her ovulation but now its all the time. Normal BM yesterday. Denies having nausea, vomiting, dysuria, urinary frequency, vaginal bleeding, back pain , change in appetite, fever, and chills. Time Seen by Provider: 10/29/17 12:33 Chief Complaint (Nursing): Abdominal Pain History Per: Patient History/Exam Limitations: no limitations Onset/Duration Of Symptoms: Days Current Symptoms Are (Timing): Still Present Quality Of Discomfort: Cramping Associated Symptoms: denies: Fever, Chills, Nausea, Vomiting, Loss Of Appetite, Back Pain, Urinary Symptoms Past Medical History Reviewed: Historical Data, Nursing Documentation, Vital Signs Vital Signs: Last Vital Signs Temp 98 F 10/29/17 12:08 Pulse 62 10/29/17 14:44 Resp 18 10/29/17 14:44 BP 115/74 10/29/17 14:44 Pulse Ox 98 10/29/17 14:44 - Medical History PMH: Diabetes, Mitral Valve Prolapse Other Surgeries: HX of surgeries - [facility] Procedures EXCISION OF BILATERAL FALLOPIAN TUBES, OPEN APPROACH (11/27/16) EXTRACTION OF POC, LOW CERVICAL, OPEN APPROACH (11/27/16) Family History: States: No Known Family Hx - Social History Hx Alcohol Use: No Hx Substance Use: No - Immunization History Hx Tetanus Toxoid Vaccination: No Hx Influenza Vaccination: No Hx Pneumococcal Vaccination: No Review Of Systems Except As Marked, All Systems Reviewed And Found Negative. Constitutional: Negative for: Fever, Chills Gastrointestinal: Positive for: Abdominal Pain. Negative for: Nausea, Vomiting Genitourinary: Negative for: Dysuria, Frequency, Vaginal Discharge Musculoskeletal: Negative for: Back Pain Physical Exam - Physical Exam Appears: Non-toxic, No Acute Distress Skin: Normal Color, Warm, Dry Head: Atraumatic, Normacephalic Eye(s): bilateral: Normal Inspection, EOMI Nose: Normal Oral Mucosa: Moist Neck: Normal ROM, Supple Chest: Symmetrical Cardiovascular: Rhythm Regular Respiratory: Normal Breath Sounds, No Accessory Muscle Use Gastrointestinal/Abdominal: Soft, Tenderness (suprapubic tenderness), No Guarding, No Rebound Back: No CVA Tenderness, No Vertebral Tenderness Pelvic: Normal External Exam, No Vaginal Bleeding, Vaginal Discharge (clear white discharge), No Cervical Motion Tenderness Extremity: Normal ROM Neurological/Psych: Oriented x3, Normal Speech, Normal Sensation ED Course And Treatment O2 Sat by Pulse Oximetry: 100 (RA) Pulse Ox Interpretation: Normal - CT Scan/US US- Abd/ Pelv/ Transvag Other Rad Studies (CT/US): Read By Radiologist, Radiology Report Reviewed CT/US Interpretation: Date of service: 10/29/2017. PROCEDURE: HISTORY: pain. COMPARISON: None. TECHNIQUE: Transabdominal and transvaginal. FINDINGS: Uterus is anteverted and measures 8.1 x 3.9 x 4.9 cm. No uterine masses seen. Endometrium is normal in appearance for this 37-year-old female at 6 0.6 mm. Cervix is unremarkable 2.6 cm. No free fluid in the cul-de-sac seen. Bilateral normal appearing ovarian follicles noted. Right ovary measures 2.8 x 1.9 x 3.1 cm with normal flow. Left ovary measures 2.7 x 1.9 x 2.6 cm with normal Doppler flow. IMPRESSION: Unremarkable exam Progress Note: UA, Urine Culture, HCG Qual. and US- Pelvis ordered. On re- evaluation, pt denies having any pain. Offered STD treatment, pt requests testing without treatment. Patient is resting comfortably, abdomen remains soft , and patient is tolerating PO. Patient feels comfortable going home. Patient instructed to follow up with the SAP SOLUTION MANAGER CONSULTANT in 1-2 days. Shoe Shiner used to ensure understanding. Disposition - Disposition Disposition: HOME/ ROUTINE Disposition Time: 14:32 Condition: STABLE Additional Instructions: Vaya a noel mdico o la clnica en 2-5 castro sin falta, para mas evaluacin. Dustin Acres los medicamentos reggie indicado. Volver a la anabelle de emergencia en cualquier momento si los sntomas persisten o empeoran. 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 - Scribe Statement The provider has reviewed the documentation as recorded by the Scribe Rashmi Del Rosario Provider Attestation All medical record entries made by the Adrienibleighton were at my direction and personally dictated by me. I have reviewed the chart and agree that the record accurately reflects my personal performance of the history, physical exam, medical decision making, and the department course for this patient. I have also personally directed, reviewed, and agree with the discharge instructions and disposition.
[2017-10-29 13:33] LABS: HCG,QUALITATIVE URINE NEGATIVE (NEGATIVE)
[2017-10-29 13:40] LABS: URINE BILIRUBIN NEGATIVE (NEGATIVE); URINE CLARITY Clear (Clear); URINE COLOR YELLOW (YELLOW); URINE GLUCOSE (UA) NEGATIVE (Normal)
[2017-10-29 13:41] LABS: URINE BLOOD NEGATIVE (NEGATIVE); URINE LEUKOCYTE ESTERASE NEGATIVE Leu/uL (Negative); URINE PROTEIN NEGATIVE (NEGATIVE); URINE UROBILINOGEN 0.2 mg/dL (0.2-1.0)
--- NOTE | 2017-10-29 13:47 | US ---
Date of service: 10/29/2017 PROCEDURE: HISTORY: pain COMPARISON: None TECHNIQUE: Transabdominal and transvaginal FINDINGS: Uterus is anteverted and measures 8.1 x 3.9 x 4.9 cm. No uterine masses seen. Endometrium is normal in appearance for this 37-year-old female at 6 0.6 mm. Cervix is unremarkable 2.6 cm. No free fluid in the cul-de-sac seen. Bilateral normal appearing ovarian follicles noted. Right ovary measures 2.8 x 1.9 x 3.1 cm with normal flow. Left ovary measures 2.7 x 1.9 x 2.6 cm with normal Doppler flow. IMPRESSION: Unremarkable exam
[2017-10-29 14:46] VITALS: BP 115/74; PULSE 62; RESP 18
[2017-10-30 17:27] VITALS: O2SAT 100
== END 2017-10-29 14:55 | disposition home or self-care (01) ==
LOC: C.ER 11:54
DX: R10.2 Pelvic and perineal pain (principal)

== ENCOUNTER 2017-11-13 15:44 | Emergency (ER) | payer OTHER ==
[2017-11-13 15:44] VITALS: BMI 29.9
--- NOTE | 2017-11-13 16:47 | C.PDOC ---
Time Seen by Provider: 11/13/17 16:35 Chief Complaint (Nursing): Headache Past Medical History Vital Signs: Last Vital Signs Temp 99.5 F 11/13/17 16:11 Pulse 87 11/13/17 16:11 Resp 20 11/13/17 16:11 BP 124/85 11/13/17 16:11 Pulse Ox 98 11/13/17 16:11 - Medical History PMH: Diabetes, Mitral Valve Prolapse - [facility] Procedures EXCISION OF BILATERAL FALLOPIAN TUBES, OPEN APPROACH (11/27/16) EXTRACTION OF POC, LOW CERVICAL, OPEN APPROACH (11/27/16) Family History: States: Unknown Family Hx - Social History Hx Alcohol Use: No Hx Substance Use: No - Immunization History Hx Tetanus Toxoid Vaccination: No Hx Influenza Vaccination: No Hx Pneumococcal Vaccination: No ED Course And Treatment O2 Sat by Pulse Oximetry: 98 Disposition - Disposition
[2017-11-13] MEDS ORDERED: DiphenhydrAMINE 50 mg/ml Inj IVP STA (16:56)
[2017-11-13] MEDS ORDERED: DiphenhydrAMINE 50 mg/ml Inj ONE (17:06)
--- NOTE | 2017-11-13 17:07 | C.PDOC ---
History Of Present Illness 37 y/o female presents to ED c/o right sided headache for the last 3 days. Notes taking Ibuprofen last night. She also complains of right breast pain. Denies fever, dizziness, weakness, numbness, or other complaints. Time Seen by Provider: 11/13/17 16:35 Chief Complaint (Nursing): Headache History Per: Patient History/Exam Limitations: no limitations Past Medical History Reviewed: Historical Data, Nursing Documentation, Vital Signs Vital Signs: Last Vital Signs Temp 99.5 F 11/13/17 16:11 Pulse 87 11/13/17 16:11 Resp 20 11/13/17 16:11 BP 124/85 11/13/17 16:11 Pulse Ox 98 11/13/17 18:02 - Medical History PMH: Diabetes, Mitral Valve Prolapse - [facility] Procedures EXCISION OF BILATERAL FALLOPIAN TUBES, OPEN APPROACH (11/27/16) EXTRACTION OF POC, LOW CERVICAL, OPEN APPROACH (11/27/16) Family History: States: Unknown Family Hx - Social History Hx Alcohol Use: No Hx Substance Use: No - Immunization History Hx Tetanus Toxoid Vaccination: No Hx Influenza Vaccination: No Hx Pneumococcal Vaccination: No Review Of Systems Except As Marked, All Systems Reviewed And Found Negative. Constitutional: Negative for: Fever, Chills Cardiovascular: Negative for: Chest Pain Respiratory: Negative for: Shortness of Breath Musculoskeletal: Positive for: Other (right breast pain) Neurological: Positive for: Headache. Negative for: Weakness, Numbness, Dizziness Physical Exam - Physical Exam Appears: Non-toxic, No Acute Distress Skin: Normal Color, Warm, Dry Head: Atraumatic, Normacephalic Eye(s): bilateral: Normal Inspection Oral Mucosa: Moist Neck: Supple Chest: Symmetrical, No Deformity, Tenderness (tenderness to right upper breast at 11'o clock position; tender, pea-size mobile nodule 5 x 6cm away from right nipple, no discharge from nipple, no swelling, no axilla adenopathy) Cardiovascular: Rhythm Regular Respiratory: Normal Breath Sounds, No Rales, No Rhonchi, No Wheezing Gastrointestinal/Abdominal: Soft, No Tenderness Extremity: Normal ROM Neurological/Psych: Oriented x3, Normal Speech ED Course And Treatment - Laboratory Results Result Diagrams: 11/13/17 17:07 11/13/17 17:07 O2 Sat by Pulse Oximetry: 98 Pulse Ox Interpretation: Normal Medical Decision Making Medical Decision Making: Plan: Blood work UA Head CT Tylenol Reglan Benadryl Disposition - Disposition Referrals: Vania Loera MD [Medical Doctor] - Disposition: HOME/ ROUTINE Disposition Time: 18:12 Condition: STABLE Additional Instructions: follow up with your doctor with in 2 days call to make an appointment return to ER if symptoms worsens or progress Instructions: Headache, Adult, Mastalgia (DC) Forms: Gen Discharge Inst [place], [facility] ([place]) - Clinical Impression Clinical Impression: Headache, Breast pain - Scribe Statement The provider has reviewed the documentation as recorded by the Scribe KP All medical record entries made by the Scribe were at my direction and personally dictated by me. I have reviewed the chart and agree that the record accurately reflects my personal performance of the history, physical exam, medical decision making, and the department course for this patient. I have also personally directed, reviewed, and agree with the discharge instructions and disposition.
[2017-11-13 17:10] LABS: BASO % 0.3 % (0.0-2.0); EOS # 0.3 K/uL (0.0-0.7); EOS % 3.7 % (0.0-4.0); HEMOGLOBIN 12.7 g/dL (11.0-16.0); LYMPH # 1.3 K/uL (1.0-4.3); LYMPH % 16.2 % (20.0-40.0); MEAN CELL VOLUME 88.6 fL (81.0-99.0); MEAN CORPUSCULAR HEMOGLOBIN 29.4 pg (27.0-31.0); MEAN CORPUSCULAR HGB CONC 33.2 g/dL (33.0-37.0); MONO # 0.9 K/uL (0.0-0.8); MONO % 10.3 % (0.0-10.0); NEUT # 5.7 K/uL (1.8-7.0); NEUT % 69.5 % (50.0-75.0); RBC 4.31 Mil/uL (3.80-5.20); RED CELL DISTRIBUTION WIDTH 14.6 % (11.5-14.5); WHITE BLOOD COUNT 8.2 K/uL (4.8-10.8)
[2017-11-13 17:23] LABS: ALB/GLOB RATIO 1.4 (1.0-2.1); ALBUMIN 4.4 g/dL (3.5-5.0); ALT/SGPT 20 U/L (9-52); AST/SGOT 22 U/L (14-36); BLOOD UREA NITROGEN 8 mg/dL (7-17); CALCIUM 9.6 mg/dl (8.6-10.4); GFR NON-AFRICAN AMERICAN > 60
--- NOTE | 2017-11-13 17:58 | CT ---
Date of service: 11/13/2017 PROCEDURE: CT HEAD WITHOUT CONTRAST. HISTORY: Dizziness COMPARISON: None available. TECHNIQUE: Axial computed tomography images were obtained through the head/brain without intravenous contrast. Radiation dose: Total exam DLP = 1064.81 mGy-cm. This CT exam was performed using one or more of the following dose reduction techniques: Automated exposure control, adjustment of the mA and/or kV according to patient size, and/or use of iterative reconstruction technique. FINDINGS: HEMORRHAGE: No intracranial hemorrhage. BRAIN: There is a small rounded low-attenuation focus within the inferior aspect left basal ganglia that probably represents a a dilated perivascular space however the possibility of a chronic tiny lacunar type infarct not excluded. . VENTRICLES: Unremarkable. No hydrocephalus. CALVARIUM: Unremarkable. PARANASAL SINUSES: Focal area of mucosal thickening sinus left chamber sphenoid sinus. Minimal mucosal thickening seen within a few ethmoid air cells. . MASTOID AIR CELLS: Unremarkable as visualized. No inflammatory changes. OTHER FINDINGS: None. IMPRESSION: There is a small rounded low-attenuation focus within the inferior aspect left basal ganglia that probably represents a a dilated perivascular space however the possibility of a chronic tiny lacunar type infarct not excluded. .
[2017-11-13 18:50] VITALS: BP 126/86; PULSE 82; RESP 18; TEMP 98.2; O2SAT 100
== END 2017-11-13 18:50 | disposition home or self-care (01) ==
LOC: C.ER 15:44
DX: R51 Headache (principal); N64.4 Mastodynia; E11.9 Type 2 diabetes mellitus without complications

== ENCOUNTER 2018-07-11 14:46 | Emergency (ER) | payer OTHER ==
[2018-07-11 14:46] VITALS: BMI 29.9
[2018-07-11 14:57] VITALS: RESP 18; TEMP 98
[2018-07-11 16:23] LABS: SQUAMOUS EPITHIAL < 1 /hpf (0-5); URINE BILIRUBIN NEGATIVE (NEGATIVE); URINE BLOOD 2+ (NEGATIVE); URINE CLARITY Clear (Clear); URINE COLOR Yellow (YELLOW); URINE GLUCOSE (UA) NORMAL (Normal); URINE LEUKOCYTE ESTERASE NEG Leu/uL (Negative); URINE PROTEIN NEGATIVE (NEGATIVE); URINE UROBILINOGEN NORMAL mg/dL (0.2-1.0)
[2018-07-11 16:25] LABS: HCG,QUALITATIVE URINE NEGATIVE (NEGATIVE)
--- NOTE | 2018-07-11 16:44 | C.PDOC ---
History Of Present Illness 38 year old female with no pertinent past medical history presents to the ED complaining of occasional intermittent dizziness for one week. Describes it as room spinning around sensation. Notes dizziness is worsen with head movement. Denies any chest pain, shortness of breath, palpitations, facial droop, slurred speech, extremity weakness, sensory changes, visual changes. Patient reports feeling asymptomatic all day today. Time Seen by Provider: 07/11/18 15:08 Chief Complaint (Nursing): Dizziness/Lightheaded History Per: Patient History/Exam Limitations: no limitations Onset/Duration Of Symptoms: Days, Intermittent Episodes Current Symptoms Are (Timing): Still Present Past Medical History Reviewed: Historical Data, Nursing Documentation, Vital Signs Vital Signs: Last Vital Signs Temp 98.0 F 07/11/18 14:54 Pulse 76 07/11/18 14:54 Resp 18 07/11/18 14:54 BP 139/85 07/11/18 14:54 Pulse Ox 100 07/11/18 14:54 Primary Care Provider: Clinic,Med Surg - Medical History PMH: Diabetes, Mitral Valve Prolapse Surgical History: - [facility] Procedures EXCISION OF BILATERAL FALLOPIAN TUBES, OPEN APPROACH (11/27/16) EXTRACTION OF POC, LOW CERVICAL, OPEN APPROACH (11/27/16) Family History: States: No Known Family Hx - Social History Hx Alcohol Use: No Hx Substance Use: No - Immunization History Hx Tetanus Toxoid Vaccination: No Hx Influenza Vaccination: No Hx Pneumococcal Vaccination: No Review Of Systems Constitutional: Negative for: Fever, Chills Cardiovascular: Negative for: Chest Pain, Palpitations Respiratory: Negative for: Shortness of Breath Gastrointestinal: Negative for: Nausea, Vomiting, Abdominal Pain, Diarrhea Neurological: Positive for: Dizziness. Negative for: Weakness, Numbness, Change in Speech, Headache, Other (facial droop ) Physical Exam - Physical Exam Appears: Non-toxic, No Acute Distress Skin: Warm, Dry, No Rash Head: Normacephalic Eye(s): bilateral: Normal Inspection, PERRL, EOMI Nose: Normal Oral Mucosa: Moist Neck: Supple Chest: Symmetrical Cardiovascular: Rhythm Regular Respiratory: Normal Breath Sounds, No Rales, No Rhonchi, No Wheezing Gastrointestinal/Abdominal: Soft, No Tenderness, No Guarding, No Rebound Extremity: Bilateral: Atraumatic, Normal Color And Temperature, Normal ROM Neurological/Psych: Oriented x3, Normal Speech Gait: Steady ED Course And Treatment - Laboratory Results Lab Results: Urine Color Yellow (YELLOW) 07/11/18 16:17 Urine Clarity Clear (Clear) 07/11/18 16:17 Urine pH 5.0 (5.0-8.0) 07/11/18 16:17 Ur Specific Orestes 1.006 (1.003-1.030) 07/11/18 16:17 Urine Protein Negative mg/dL (NEGATIVE) 07/11/18 16:17 Urine Glucose (UA) Normal mg/dL (Normal) 07/11/18 16:17 Urine Ketones Negative mg/dL (NEGATIVE) 07/11/18 16:17 Urine Blood 2+ (NEGATIVE) H 07/11/18 16:17 Urine Nitrate Negative (NEGATIVE) 07/11/18 16:17 Urine Bilirubin Negative (NEGATIVE) 07/11/18 16:17 Urine Urobilinogen Normal mg/dL (0.2-1.0) 07/11/18 16:17 Ur Leukocyte Esterase Neg Juanita/uL (Negative) 07/11/18 16:17 Urine WBC (Auto) 1 /hpf (0-5) 07/11/18 16:17 Urine RBC (Auto) 11 /hpf (0-3) H 07/11/18 16:17 Ur Squamous Epith Cells < 1 /hpf (0-5) 07/11/18 16:17 Urine HCG, Qual Negative (NEGATIVE) 07/11/18 16:17 Urine HCG, Qual Negative (NEGATIVE) 07/11/18 16:17 ECG: Interpreted By Me, Viewed By Me ECG Rhythm: Sinus Rhythm Interpretation Of ECG: No ST/T wave changes, Normal axis. Rate From EC O2 Sat by Pulse Oximetry: 100 (RA) Pulse Ox Interpretation: Normal Progress Note: EKG, UA, and HCG ordered. Disposition Counseled Patient/Family Regarding: Studies Performed, Diagnosis, Need For Followup, Rx Given - Disposition Referrals: [facility] [Outside] Disposition: HOME/ ROUTINE Disposition Time: 16:45 Condition: STABLE Additional Instructions: FOLLOW UP WITH MEDICAL CLINIC IN 1-2 DAYS USE MEDICATION NEEDED FOR DIZZINESS DRINK PLENTY OF WATER AND EAT REGULARLY RETURN TO EMERGENCY ROOM IF YOUR SYMPTOMS BECOME WORSE SEGUIR CON LA CLNICA MDICA EN 1-2 PALACIOS UTILICE MEDICAMENTOS LINDA SE NECESITE PARA LA MAREZA DEBBY MUCHO DE AGUA Y COMER REGULARMENTE VUELVA A LA TAMANNA DE EMERGENCIA SI [place] SNTOMAS SE HACEN PE[place] Prescriptions: Meclizine [Meclizine*] 25 mg PO Q6 #15 tab Instructions: Vertigo (a Type of Dizziness) (DC) Forms: [employer] (Wolof) Print Language: KHMER - Clinical Impression Clinical Impression: Dizziness - Scribe Statement The provider has reviewed the documentation as recorded by the Zachariah Hill All medical record entries made by the Scribe were at my direction and personally dictated by me. I have reviewed the chart and agree that the record accurately reflects my personal performance of the history, physical exam, medical decision making, and the department course for this patient. I have also personally directed, reviewed, and agree with the discharge instructions and disposition.
[2018-07-11 17:21] VITALS: BP 137/74; PULSE 88
[2018-07-11 17:57] VITALS: O2SAT 100
--- NOTE | 2018-07-12 21:52 | CARD ---
APPROVED REPORT Date of service: 07/11/2018 EKG Measurement Heart [id number] ID [id number] <Conclusion> Normal sinus rhythm Normal ECG
== END 2018-07-11 17:20 | disposition home or self-care (01) ==
LOC: C.ER 14:46
DX: R42 Dizziness and giddiness (principal); E11.9 Type 2 diabetes mellitus without complications; I34.1 Nonrheumatic mitral (valve) prolapse